=== PATIENT | female | born 1990 | race Caucasian/White ===

== ENCOUNTER 2018-04-24 18:23 | Emergency (ER) | payer BC ==
[~2018-04-24] VITALS: Ht 180.3 cm; Wt 106.7 kg
[2018-04-24 19:29] LABS: HEMATOCRIT 41.6 % (36.0-46.0); HEMOGLOBIN 14.3 G/DL (11.9-15.5); MCH 28.5 PG (29.0-34.0); MCHC 34.4 G/DL (30.0-36.0); MCV 82.9 FL (83-99); PLATELET COUNT 216 K/uL (156-360); RBC DIS.WIDTH-CV 12.9 % (11.8-14.6); RBC DIS.WIDTH-SD 38.5 % (39-53); RED BLOOD COUNT 5.02 M/uL (3.80-5.20); WHITE BLOOD COUNT 7.2 K/uL (4.1-10.2)
[2018-04-24 19:38] LABS: ALBUMIN 4.2 g/dL (3.2-4.8); CHLORIDE 106 mEq/L (99-109); POTASSIUM 3.8 mEq/L (3.7-5.4); SODIUM 141 mEq/L (136-147)
[2018-04-24 19:38] LABS: APPEARANCE CLEAR ((CLEAR)); BILIRUBIN NEGATIVE; BLOOD NEGATIVE; COLOR YELLOW ((YELLOW)); GLUCOSE (STRIP) NEGATIVE; KETONES NEGATIVE; LEUKOCYTES NEGATIVE; NITRITE NEGATIVE; PROTEIN (STRIP) NEGATIVE; SPECIFIC GRAVITY 1.012 (1.000-1.030); UROBILINOGEN 0.2 MG/DL (0.2-1.0)
[2018-04-24 19:40] LABS: GLUCOSE 111 mg/dL (70-99)
[2018-04-24 19:44] LABS: ALKALINE PHOSPHATASE 99 IU/L (3-129); CREATININE 0.8 mg/dL (0.6-1.3); GFR ESTIMATE (CALCULATED) > 59 mL/min/
[2018-04-24 19:45] LABS: UREA NITROGEN (BUN) 9 mg/dL (9-23)
[2018-04-24 19:46] LABS: AST (GOT) 17 IU/L (2-34)
[2018-04-24 19:47] LABS: ALT (GPT) 20 IU/L (3-49); LIPASE 6 U/L (1.0-51.0)
[2018-04-24 19:53] LABS: QUANTITATIVE HCG < 4.0 MIU/ML
[2018-04-24] MEDS ORDERED: ZOFRAN ODT8 MG PO (21:29)
[2018-04-24 21:55] VITALS: BP 92/60
== END 2018-04-24 21:57 | disposition home or self-care (01) ==
LOC: EME 18:23
PROVIDERS: Physician Assistant
DX: R10.11 Right upper quadrant pain (principal); R11.2 Nausea with vomiting, unspecified
CPT/HCPCS: 74176; 76705; 80053; 81003; 83690; 84702; 85027; 99281; 99284

== ENCOUNTER → 2018-05-07 | Outpatient (CLI) | payer BC ==
[~2018-05-07] MED LIST: ZOFRAN ODT8 MG PO
== END | disposition home or self-care (01) ==
LOC: NUC 07:00
DX: K30 Functional dyspepsia (principal); R10.13 Epigastric pain; R14.0 Abdominal distension (gaseous)
CPT/HCPCS: 78227; A9537; J2805